=== PATIENT | male | born 1975 | race Two or more races ===

== ENCOUNTER 2020-08-04 16:12 | Emergency (ER) | payer MEDICAID ==
[~2020-08-04] VITALS: Ht 170.2 cm; Wt 70.0 kg
[2020-08-04 17:31] VITALS: BP 95/64
== END 2020-08-04 17:34 | disposition home or self-care (01) ==
LOC: ER 16:12
DX: Z76.0 Encounter for issue of repeat prescription (principal); F20.9 Schizophrenia, unspecified
CPT/HCPCS: 99281

== ENCOUNTER 2021-03-29 23:17 | Emergency (ER) | payer MEDICAID ==
[~2021-03-29] VITALS: Ht 172.7 cm; Wt 69.0 kg
[2021-03-29] MEDS ORDERED: ARIP20TA2 MT ×2 (23:34→23:45)
[2021-03-29] MEDS ORDERED: ARIPIPRAZOLE 5MG TABLET PO ONE (23:45)
[2021-03-29 23:50] VITALS: BP 123/75
== END 2021-03-30 00:03 | disposition home or self-care (01) ==
LOC: ER 23:17
DX: Z76.0 Encounter for issue of repeat prescription (principal); F31.9 Bipolar disorder, unspecified; F20.9 Schizophrenia, unspecified
CPT/HCPCS: 99283

== ENCOUNTER 2021-03-30 01:37 | Emergency (ER) | payer MEDICAID, OTHER ==
[~2021-03-30] VITALS: Ht 167.6 cm; Wt 69.0 kg
[~2021-03-30 01:37] MED LIST: ARIP20TA2 MT
[2021-03-30 01:49] VITALS: BP 120/77
== END 2021-03-30 02:17 | disposition home or self-care (01) ==
LOC: ER 01:37
DX: Z76.0 Encounter for issue of repeat prescription (principal); F20.9 Schizophrenia, unspecified; F31.9 Bipolar disorder, unspecified
CPT/HCPCS: 99281